=== PATIENT | male | born 1990 | race Caucasian/White ===

== ENCOUNTER 2017-01-27 23:00 | Emergency (ER) | payer SELFPAY ==
[~2017-01-27] VITALS: Ht 182.9 cm; Wt 67.8 kg
[~2017-01-27 23:00] MED LIST: LAMO25TA PO; LITH300C PO
[2017-01-27] MEDS ORDERED: LIDOCAINE 1%, 20ML INFIL ONE (23:30)
[2017-01-28] MEDS ORDERED: LIDOCAINE 1%, 20ML ONE (00:10)
[2017-01-28] MEDS ORDERED: HYDROcodone/APAP 10/325 MG TABLET ONE (00:21)
[2017-01-28] MEDS ORDERED: HYDROcodone/APAP 10/325 MG TABLET PO ONE (00:30)
[2017-01-28] MEDS ORDERED: CLINDAMYCIN 150 MG/ML, 6ML IM ONE (00:30)
[2017-01-28 01:07] VITALS: BP 132/79
== END 2017-01-28 01:09 | disposition home or self-care (01) ==
LOC: ED 01-28 01:04
DX: L03.011 Cellulitis of right finger (principal); M65.141 Other infective (teno)synovitis, right hand; J45.909 Unspecified asthma, uncomplicated; F17.200 Nicotine dependence, unspecified, uncomplicated
CPT/HCPCS: 96372

== ENCOUNTER 2020-01-02 13:36 | Emergency (ER) | payer MEDICAID ==
[~2020-01-02] VITALS: Ht 193 cm; Wt 71.3 kg
[~2020-01-02 13:36] MED LIST changes: -LAMO25TA PO; +LAMO25TA9 PO
[2020-01-02 13:40] VITALS: BP 121/76
[2020-01-02] MEDS ORDERED: AZITHROMYCIN 500 MG TABLET PO ONE (14:00)
[2020-01-02] MEDS ORDERED: SODIUM CHLORIDE FLUSH 10ML SYR IVF ONE (14:00)
[2020-01-02] MEDS ORDERED: CEFTRIAXONE 250 MG IM ONE (14:00)
[2020-01-02] MEDS ORDERED: ONDANSETRON 2MG/ML, 2ML IVPush ONE (14:00)
[2020-01-02] MEDS ORDERED: MORPHINE SULFATE 4 MG/ML, 1ML IVPush PRN (14:00)
[2020-01-02] MEDS ORDERED: ONDANSETRON 2MG/ML, 2ML ONE (14:09)
[2020-01-02] MEDS ORDERED: MORPHINE SULFATE 4 MG/ML, 1ML ONE (14:09)
[2020-01-02] MEDS ORDERED: CEFTRIAXONE PMX 1GM/50ML 50 ML ONE (14:09)
[2020-01-02] MEDS ORDERED: AZITHROMYCIN 500 MG TABLET ONE (14:12)
--- NOTE | 2020-01-02 14:25 | NUR ---
PT HAS CO PENILE DISCHARGE W SWOLLEN SCROTUM AND TESTICLES. STARTED 3 DAYS AGO, PAINFUL. IV STARTED. MEDICATED PER ORDERS.
[2020-01-02] MEDS ORDERED: CEFTRIAXONE PMX 1GM/50ML 50 ML IV ONE (14:30)
[2020-01-02 14:41] LABS: ALBUMIN 2.5 g/dL (3.4-5.0); ANION GAP 5 mmol/L (5-15); CALCIUM 8.7 mg/dL (8.5-10.1); CHLORIDE 107 mmol/L (98-107); CREATININE 0.88 mg/dL (0.7-1.3)
[2020-01-02 15:09] LABS: BASOPHILS # (AUTO) 0.01 x10^3/uL (0-0.1); BASOPHILS % (AUTO) 0 % (0-1); EOSINOPHILS % (AUTO) 2 % (1-7); LYMPHOCYTES # (AUTO) 2.04 x10^3/uL (1-3.4); LYMPHOCYTES % (AUTO) 15 % (22-44); MD MORPH REVIEW ONLY; MEAN CORPUSCULAR HEMOGLOBIN 16.7 pg (27.5-34.5); MEAN CORPUSCULAR VOLUME 57.7 fL (81-97); MEAN PLATELET VOLUME 7.3 fL (7.4-10.4); MONOCYTES # (AUTO) 0.75 x10^3/uL (0.2-0.8); MONOCYTES % (AUTO) 6 % (2-9); NEUTROPHILS # (AUTO) 10.25 x10^3/uL (1.8-6.8); NEUTROPHILS % (AUTO) 77 % (42-75); PLATELET COUNT 622 x10^3/uL (130-400); RED BLOOD COUNT 5.15 x10^6/uL (4.38-5.82); RED CELL DISTRIBUTION WIDTH 22.5 % (9.4-14.8)
[2020-01-02 15:10] LABS: ANISOCYTOSIS 2+; HYPOCHROMIA 1+; MICROCYTOSIS 1+; OVALOCYTES 1+; POLYCHROMASIA 1+
[2020-01-02 15:11] LABS: <PLATELET ESTIMATE> INCREASED; <PLT MORPHOLOGY> NORMAL PLT MORPH; SCHISTOCYTES 1+
--- NOTE | 2020-01-02 15:36 | NUR ---
Patient/Caregiver given discharge instructions and they have confirmed that they understand the instructions. Patient ambulatory with steady gait.
== END 2020-01-02 15:38 | disposition home or self-care (01) ==
LOC: ED 14:20
DX: N45.1 Epididymitis (principal); D53.9 Nutritional anemia, unspecified; N50.811 Right testicular pain; N50.812 Left testicular pain; J45.909 Unspecified asthma, uncomplicated
CPT/HCPCS: 36415; 76870; 80048; 82040; 85025; 96365; 96375; 99284; J0696; J2270; J2405